=== PATIENT | female | born 1990 | race Caucasian/White ===

== ENCOUNTER 2016-08-16 12:40 | Emergency (ER) | payer MEDICAID ==
[~2016-08-16] VITALS: Ht 160 cm; Wt 134.1 kg
[~2016-08-16 12:40] MED LIST: BUPR-86 PO; LAMO PO; PARO40TA45 PO
[2016-08-16 12:44] VITALS: BP 144/84
== END 2016-08-16 13:19 | disposition home or self-care (01) ==
LOC: ED 13:02
DX: K02.9 Dental caries, unspecified (principal); Z88.2 Allergy status to sulfonamides
CPT/HCPCS: 99283